=== PATIENT | female | born 1975 | race African-American/Black ===

== ENCOUNTER 2017-06-30 13:11 | Emergency (ER) | payer MEDICAID ==
[~2017-06-30] VITALS: Ht 165.1 cm; Wt 133.0 kg
[~2017-06-30 13:11] MED LIST: ALBU18HF2 IH; ASPI-1160 PO; BECL8.7A6 INH; FURO40TA5 PO; HYDR25TA PO; NASA IH; TIOT18CA3 INH
[2017-06-30 22:15] LABS: BASOPHILS % 0.2 % (0.0-2.0); EOSINOPHILS % 1.7 % (0.0-5.0); HEMATOCRIT. 42.3 % (36.0-48.0); HEMOGLOBIN. 13.7 g/dL (12.0-16.0); LYMPHOCYTES % 13.2 % (20.0-50.0); MEAN CORPUSCULAR VOLUME 86.2 fL (81.0-99.0); MEAN PLATELET VOLUME 8.4 fl (7.4-10.4); MONOCYTES % 12.4 % (2.0-8.0); NEUTROPHILS % 72.5 % (40.0-76.0); PLATELET 258 x1000/uL (130-400); RED BLOOD CELL COUNT 4.91 mill/uL (4.2-5.4); RED CELL DISTRIBUTION WIDTH 13.4 % (11.6-14.6)
[2017-06-30 22:19] LABS: INR 1.1; PROTHROMBIN TIME 11.1 sec (9.4-11.6)
[2017-06-30 22:21] LABS: CHLORIDE 99 mEq/L (98-107)
[2017-06-30 22:24] LABS: HCG SCREEN NEGATIVE
[2017-06-30] MEDS ORDERED: ONDANSETRON 4MG ODT PO ONE (22:45)
[2017-06-30] MEDS ORDERED: ACETAMINOPHEN 500MG TABLET PO ONE (22:45)
[2017-07-01 00:55] LABS: CLARITY URINE CLOUDY (CLEAR); COLOR URINE ORANGE (YELLOW); KETONES URINE NEGATIVE (NEGATIVE); LEUKOCYTE ESTERASE URINE 1+ (NEGATIVE); NITRITE URINE NEGATIVE (NEGATIVE); OCCULT BLOOD URINE 3+ (NEGATIVE); PROTEIN URINE 2+ (NEGATIVE); SPECIFIC GRAVITY URINE 1.023 (1.005-1.030); UROBILINOGEN URINE 0.2 E.U./dL (0.2-1.0)
[2017-07-01 02:25] VITALS: BP 109/70
== END 2017-07-01 02:10 | disposition home or self-care (01) ==
LOC: ER 16:19
DX: N39.0 Urinary tract infection, site not specified (principal); J44.9 Chronic obstructive pulmonary disease, unspecified; I11.0 Hypertensive heart disease with heart failure; I50.9 Heart failure, unspecified; Z79.82 Long term (current) use of aspirin
CPT/HCPCS: 36415; 80053; 81003; 83690; 84703; 85025; 85610; 99284; Q0162; Z7610

== ENCOUNTER 2019-01-29 11:37 | Inpatient (IN) | payer MEDICARE, MEDICAID ==
[~2019-01-29] VITALS: Ht 165.1 cm; Wt 153.8 kg
[2019-01-29] MEDS ORDERED: ALBUTEROL (0.083%) 2.5MG/3ML NEB HHN STA (12:02)
[2019-01-29 13:36] LABS: BASOPHILS % 0.5 % (0.0-2.0); EOSINOPHILS % 2.9 % (0.0-5.0); HEMATOCRIT. 40.7 % (36.0-48.0); HEMOGLOBIN. 12.9 g/dL (12.0-16.0); LYMPHOCYTES % 22.6 % (20.0-50.0); MEAN CORPUSCULAR HEMOGLOBIN 27.6 pg (28.0-32.0); MEAN CORPUSCULAR VOLUME 87.1 fL (81.0-99.0); MEAN PLATELET VOLUME 8.9 fl (7.4-10.4); MONOCYTES % 8.4 % (2.0-8.0); NEUTROPHILS % 65.6 % (40.0-76.0); PLATELET 157 x1000/uL (130-400); RED BLOOD CELL COUNT 4.68 mill/uL (4.2-5.4); RED CELL DISTRIBUTION WIDTH 14.7 % (11.6-14.6)
[2019-01-29 13:42] LABS: CHLORIDE 109 mEq/L (98-107)
[2019-01-29] MEDS ORDERED: ASPIRIN 81MG TABLET PO ONE (14:00)
[2019-01-29] MEDS ORDERED: FUROSEMIDE 40MG/4ML VIAL IV ONE (14:00)
[2019-01-29] MEDS ORDERED: METHYLPREDNISOLONE SOD SUCC 125 MG/2 ML VIAL IV ONE (14:30)
[2019-01-29] MEDS ORDERED: IPRATROPIUM/ALBUTEROL 0.5-3(2.5)MG/3ML NEB HHN PRN (16:30)
[2019-01-29 17:08] VITALS: BP 129/78
[2019-01-29 17:13] VITALS: BP 129/78
[2019-01-29] MEDS ORDERED: ATOR20TA65 PO (17:31)
[2019-01-29] MEDS ORDERED: AMLO5TAB88 PO (17:31)
[2019-01-29] MEDS ORDERED: SPIR50TA5 PO (17:31)
[2019-01-29] MEDS ORDERED: ALLO100T PO (17:31)
[2019-01-29] MEDS ORDERED: POTA-79 PO (17:31)
[2019-01-29] MEDS ORDERED: INFLUENZA VIRUS VACCINE(AFLURIA) 0.5ML SYR IM ONE (18:45)
[2019-01-29 20:00] VITALS: BP 134/74
[2019-01-29] MEDS: ACETAMINOPHEN 325MG TABLET PO PRN (20:09)
[2019-01-29] MEDS: BUDESONIDE 0.5MG/2ML NEB HHN SCH (21:13)
[2019-01-30] VITALS: BP 130/76
[2019-01-30] MEDS: IPRATROPIUM/ALBUTEROL 0.5-3(2.5)MG/3ML NEB HHN SCH ×6 (01:02→21:26)
[2019-01-30 04:00] VITALS: BP 134/83
[2019-01-30 08:00] VITALS: BP 128/68
[2019-01-30] MEDS: BUDESONIDE 0.5MG/2ML NEB HHN SCH ×2 (08:54→21:26)
[2019-01-30] MEDS: METHYLPREDNISOLONE SOD SUCC 40 MG/ML VIAL IV SCH (09:06)
[2019-01-30] MEDS: ACETAMINOPHEN 325MG TABLET PO PRN (10:22)
[2019-01-30 12:00] VITALS: BP 124/74
[2019-01-30 16:00] VITALS: BP 118/75
[2019-01-30 16:00] LABS: HEMATOCRIT. 43.5 % (36.0-48.0); HEMOGLOBIN. 13.8 g/dL (12.0-16.0); MEAN CORPUSCULAR HEMOGLOBIN 27.5 pg (28.0-32.0); MEAN CORPUSCULAR VOLUME 86.7 fL (81.0-99.0); MEAN PLATELET VOLUME 8.9 fl (7.4-10.4); PLATELET 203 x1000/uL (130-400); RED BLOOD CELL COUNT 5.01 mill/uL (4.2-5.4); RED CELL DISTRIBUTION WIDTH 14.8 % (11.6-14.6)
[2019-01-30 16:03] LABS: CHLORIDE 104 mEq/L (98-107)
[2019-01-30 16:09] LABS: PHOSPHORUS 2.9 mg/dL (2.5-4.9)
[2019-01-30] MEDS: FUROSEMIDE 40MG TABLET PO SCH (16:50)
[2019-01-30] MEDS: DILTIAZEM HCL 30MG TABLET PO SCH (16:51)
[2019-01-30] MEDS: SPIRONOLACTONE 50MG TABLET PO SCH (16:51)
[2019-01-30 17:06] LABS: PLATELET ESTIMATE NORMAL
[2019-01-30 20:15] VITALS: BP 139/79
[2019-01-30] MEDS: LORATADINE 10MG TABLET PO SCH (20:33)
[2019-01-30] MEDS: FLUTICASONE PROPIONATE 50MCG/SPRAY BOTTLE BOTHNSTRLS SCH (20:33)
[2019-01-30] MEDS: CEPHALEXIN 250MG CAPSULE PO SCH (20:33)
[2019-01-31] VITALS: BP 120/72
[2019-01-31] MEDS: CEPHALEXIN 250MG CAPSULE PO SCH ×4 (00:21→21:57)
[2019-01-31] MEDS: DILTIAZEM HCL 30MG TABLET PO SCH ×4 (00:21→17:55)
[2019-01-31] MEDS: IPRATROPIUM/ALBUTEROL 0.5-3(2.5)MG/3ML NEB HHN SCH ×6 (00:24→21:01)
[2019-01-31] MEDS: ACETYLCYSTEINE 100MG/ML 10% VIAL 4ML INH SCH ×3 (00:24→15:10)
[2019-01-31 04:00] VITALS: BP 123/53
[2019-01-31 08:00] VITALS: BP 121/74
[2019-01-31] MEDS: BUDESONIDE 0.5MG/2ML NEB HHN SCH ×2 (08:13→21:00)
[2019-01-31] MEDS ORDERED: MEDICATION NOT ON FORMULARY EA (Potassium Chloride 20 MEQ) PO SCH (09:00)
[2019-01-31] MEDS ORDERED: AMLODIPINE 5MG TABLET PO SCH (09:00)
[2019-01-31] MEDS: ASPIRIN 81MG TABLET PO SCH (09:35)
[2019-01-31] MEDS: LORATADINE 10MG TABLET PO SCH (09:35)
[2019-01-31] MEDS: POTASSIUM CHLORIDE 20MEQ TABLET SR PO SCH (09:35)
[2019-01-31] MEDS: METHYLPREDNISOLONE SOD SUCC 40 MG/ML VIAL IV SCH (09:36)
[2019-01-31] MEDS: FUROSEMIDE 40MG TABLET PO SCH ×2 (09:36→17:58)
[2019-01-31] MEDS ORDERED: POTASSIUM CHLORIDE 20MEQ TABLET SR PO NR (11:34)
[2019-01-31 12:00] VITALS: BP 130/68
[2019-01-31] MEDS: SPIRONOLACTONE 50MG TABLET PO SCH ×2 (12:17→17:58)
[2019-01-31] MEDS: ALLOPURINOL 100 MG TABLET PO SCH (12:18)
[2019-01-31] MEDS: ATORVASTATIN CALCIUM 20MG TABLET PO SCH (12:18)
[2019-01-31] MEDS: FLUTICASONE PROPIONATE 50MCG/SPRAY BOTTLE BOTHNSTRLS SCH ×2 (12:18→21:48)
[2019-01-31 16:00] VITALS: BP 104/55
[2019-01-31] MEDS ORDERED: CEPHALEXIN 250MG CAPSULE PO SCH ×2 (16:00→23:00)
[2019-01-31 20:00] VITALS: BP 135/78
[2019-02-01] VITALS: BP 138/78
[2019-02-01] MEDS: ACETYLCYSTEINE 100MG/ML 10% VIAL 4ML INH SCH ×2 (00:39→09:53)
[2019-02-01] MEDS: DILTIAZEM HCL 30MG TABLET PO SCH ×2 (00:41→05:02)
[2019-02-01] MEDS: ACETAMINOPHEN 325MG TABLET PO PRN (00:41)
[2019-02-01] MEDS: IPRATROPIUM/ALBUTEROL 0.5-3(2.5)MG/3ML NEB HHN SCH ×4 (00:41→13:54)
[2019-02-01 04:00] VITALS: BP 150/87
[2019-02-01] MEDS: CEPHALEXIN 250MG CAPSULE PO SCH ×2 (04:48→09:24)
[2019-02-01 07:53] LABS: CHLORIDE 103 mEq/L (98-107)
[2019-02-01 08:00] VITALS: BP 129/80
[2019-02-01] MEDS: FUROSEMIDE 40MG TABLET PO SCH (09:24)
[2019-02-01] MEDS: ALLOPURINOL 100 MG TABLET PO SCH (09:24)
[2019-02-01] MEDS: METHYLPREDNISOLONE SOD SUCC 40 MG/ML VIAL IV SCH (09:24)
[2019-02-01] MEDS: ATORVASTATIN CALCIUM 20MG TABLET PO SCH (09:24)
[2019-02-01] MEDS: POTASSIUM CHLORIDE 20MEQ TABLET SR PO SCH (09:24)
[2019-02-01] MEDS: LORATADINE 10MG TABLET PO SCH (09:24)
[2019-02-01] MEDS: ASPIRIN 81MG TABLET PO SCH (09:25)
[2019-02-01] MEDS: FLUTICASONE PROPIONATE 50MCG/SPRAY BOTTLE BOTHNSTRLS SCH (09:29)
[2019-02-01] MEDS: SPIRONOLACTONE 50MG TABLET PO SCH (09:29)
[2019-02-01] MEDS: BUDESONIDE 0.5MG/2ML NEB HHN SCH (09:53)
[2019-02-01] MEDS ORDERED: CEPH-569 MT (10:29)
[2019-02-01 12:00] VITALS: BP 122/70
== END 2019-02-01 16:54 | disposition home or self-care (01) | DRG 291 ==
LOC: ER 11:37 → 6WST 14:23 → EDBEDREQTM 14:29 → EDBEDREQ 14:29 → ENRESERV 15:26
PROVIDERS: ADMIT Family Medicine; ATTEND Family Medicine
PROC: 5A09357 Assistance with Respiratory Ventilation, Less than 24 Consecutive Hours, Continuous Positive Airway Pressure (ICD-10-PCS; principal; 2019-01-30)
PROC: 5A09357 Assistance with Respiratory Ventilation, Less than 24 Consecutive Hours, Continuous Positive Airway Pressure (ICD-10-PCS; 2019-01-31)
PROC: 5A09357 Assistance with Respiratory Ventilation, Less than 24 Consecutive Hours, Continuous Positive Airway Pressure (ICD-10-PCS; 2019-02-01)
DX: I11.0 Hypertensive heart disease with heart failure (principal); J96.20 Acute and chronic respiratory failure, unspecified whether with hypoxia or hypercapnia; J44.1 Chronic obstructive pulmonary disease with (acute) exacerbation; E44.1 Mild protein-calorie malnutrition; E66.2 Morbid (severe) obesity with alveolar hypoventilation; Z68.43 Body mass index [BMI] 50.0-59.9, adult; I50.43 Acute on chronic combined systolic (congestive) and diastolic (congestive) heart failure; I42.9 Cardiomyopathy, unspecified; I27.29 Other secondary pulmonary hypertension; J00 Acute nasopharyngitis [common cold]; Z99.81 Dependence on supplemental oxygen; Z83.3 Family history of diabetes mellitus; Z79.82 Long term (current) use of aspirin; Z79.899 Other long term (current) drug therapy
CPT/HCPCS: 36415; 71045; 80048; 83735; 83880; 84100; 84484; 90686; 93005; 93306; 94640; 94660; 96374; 99285; J1940; J2920; J2930; J7608; J7611; J7620; J7626

== ENCOUNTER 2022-04-12 05:40 | Inpatient (IN) | payer MEDICARE, MEDICAID ==
[~2022-04-12] VITALS: Ht 165.1 cm; Wt 169.6 kg
[~2022-04-12 05:40] MED LIST changes: -ALBU18HF2 IH; +ALLO100T PO; +AMLO5TAB88 PO; +ATOR20TA65 PO; -BECL8.7A6 INH; +CEPH-569 MT; -HYDR25TA PO; -NASA IH; +POTA-79 PO; +SPIR50TA5 PO; -TIOT18CA3 INH
[2022-04-12] MEDS ORDERED: ALBUTEROL (0.083%) 2.5MG/3ML NEB HHN STA (05:59)
[2022-04-12] MEDS ORDERED: MAGNESIUM 2 G PREMIX 50 ML IV STA (05:59)
[2022-04-12] MEDS ORDERED: METHYLPREDNISOLONE SOD SUCC 125 MG/2 ML VIAL IV STA (05:59)
[2022-04-12] MEDS ORDERED: IPRATROPIUM BROMIDE (0.02%) 0.5MG/2.5ML NEB HHN STA (05:59)
[2022-04-12 06:40] LABS: CHLORIDE 97 mEq/L (98-107)
[2022-04-12 06:54] LABS: BASOPHILS % 0.7 % (0.0-2.0); EOSINOPHILS % 0.5 % (0.0-5.0); HEMOGLOBIN. 16.6 g/dL (12.0-16.0); LYMPHOCYTES % 36.1 % (20.0-50.0); MEAN CORPUSCULAR HEMOGLOBIN 27.2 pg (28.0-32.0); MEAN CORPUSCULAR VOLUME 85.3 fL (81.0-99.0); MEAN PLATELET VOLUME 8.6 fl (7.4-10.4); MONOCYTES % 13.1 % (2.0-8.0); NEUTROPHILS % 49.6 % (40.0-76.0); PLATELET 197 x1000/uL (130-400); RED CELL DISTRIBUTION WIDTH 16.4 % (11.6-14.6)
[2022-04-12] MEDS ORDERED: FUROSEMIDE 40MG/4ML VIAL IVP ONE (07:45)
[2022-04-12] MEDS ORDERED: ENALAPRIL 2.5MG/2ML VIAL 2ML IV ONE (07:45)
[2022-04-12 07:57] LABS: HCG SCREEN NEGATIVE
[2022-04-12] MEDS ORDERED: ENALAPRIL 1.25MG/ML VIAL 1ML IV NR (08:00)
[2022-04-12] MEDS ORDERED: IOHEXOL-350 100 ML BOTTLE ONE (09:36)
[2022-04-12] MEDS ORDERED: ACETAMINOPHEN WITH CODEINE 300/30MG TABLET PO ONE (10:00)
[2022-04-12] MEDS ORDERED: IPRATROPIUM/ALBUTEROL 0.5-3(2.5)MG/3ML NEB HHN PRN (11:45)
[2022-04-12] MEDS ORDERED: CLONIDINE 0.1MG TABLET PO PRN (11:45)
[2022-04-12] MEDS ORDERED: DIPHENHYDRAMINE 50MG/ML VIAL IV PRN (11:45)
[2022-04-12] MEDS ORDERED: ONDANSETRON HCL 4MG/2ML INJ IV PRN (11:45)
[2022-04-12 13:12] VITALS: BP 137/84
[2022-04-12] MEDS: METHYLPREDNISOLONE SOD SUCC 125 MG/2 ML VIAL IV SCH ×2 (14:06→17:54)
[2022-04-12] MEDS: ACETAMINOPHEN 325MG TABLET PO PRN ×2 (14:06→21:42)
[2022-04-12] MEDS ORDERED: *PATIENT'S OWN MEDICATION STORAGE XX SCH (14:15)
[2022-04-12 15:42] VITALS: BP 98/68
[2022-04-12 20:00] VITALS: BP 152/122
[2022-04-12] MEDS: METHYLPREDNISOLONE SOD SUCC 40 MG/ML VIAL IV SCH (21:33)
[2022-04-13] VITALS: BP 125/78
[2022-04-13 04:00] VITALS: BP 118/70
[2022-04-13] MEDS: ACETAMINOPHEN 325MG TABLET PO PRN ×3 (05:06→18:55)
[2022-04-13] MEDS: METHYLPREDNISOLONE SOD SUCC 40 MG/ML VIAL IV SCH ×3 (05:07→21:35)
[2022-04-13 07:47] LABS: BASOPHILS % 0.1 % (0.0-2.0); HEMATOCRIT. 51.8 % (36.0-48.0); HEMOGLOBIN. 16.5 g/dL (12.0-16.0); LYMPHOCYTES % 25.2 % (20.0-50.0); MEAN CORPUSCULAR HEMOGLOBIN 27.7 pg (28.0-32.0); MEAN CORPUSCULAR VOLUME 86.8 fL (81.0-99.0); MEAN PLATELET VOLUME 8.5 fl (7.4-10.4); MONOCYTES % 7.3 % (2.0-8.0); NEUTROPHILS % 67.4 % (40.0-76.0); PLATELET 189 x1000/uL (130-400); RED BLOOD CELL COUNT 5.97 mill/uL (4.2-5.4); RED CELL DISTRIBUTION WIDTH 16.2 % (11.6-14.6)
[2022-04-13 07:48] LABS: CHLORIDE 96 mEq/L (98-107)
[2022-04-13 08:23] VITALS: BP 106/77
[2022-04-13] MEDS ORDERED: FUROSEMIDE 40MG/4ML VIAL IVP SCH (09:00)
[2022-04-13 11:32] VITALS: BP 113/58
[2022-04-13 12:35] LABS: BG BASE EXCESS -1.3 mmol/L (-2.0-2.0); BG CARBOXYHEMOGLOBIN 1.2 % (0.5-1.5); BG DEOXYHEMOGLOBIN 14.5 % (0.0-5.0); BG FRACTION INSPIRED OXYGEN 32; BG METHEMOGLOBIN 0.3 % (0.0-1.5); BG OXYGEN SATURATION 85.3 % (92.0-98.5); BG PCO2 41.9 mmHg (35.0-45.0); BG PH 7.375 (7.350-7.450); BG PO2 52.4 mmHg (75.0-100.0); BG SAMPLE SITE RIGHT RADIAL; BG TOTAL HEMOGLOBIN 18.2 g/dL (12.0-18.0); BG VENT MODE NASAL CANNULA
[2022-04-13] MEDS: DILTIAZEM HCL 30MG TABLET PO SCH ×2 (14:00→21:35)
[2022-04-13 16:06] VITALS: BP 119/77
[2022-04-13 20:00] VITALS: BP 107/74
[2022-04-13] MEDS: SILDENAFIL CITRATE 20MG TABLET PO SCH (21:34)
[2022-04-14] VITALS: BP 104/57
[2022-04-14] MEDS: ACETAMINOPHEN 325MG TABLET PO PRN ×3 (01:33→14:51)
[2022-04-14 04:00] VITALS: BP 110/78
[2022-04-14] MEDS: SILDENAFIL CITRATE 20MG TABLET PO SCH ×3 (05:48→21:47)
[2022-04-14] MEDS: METHYLPREDNISOLONE SOD SUCC 40 MG/ML VIAL IV SCH ×3 (05:48→22:19)
[2022-04-14] MEDS: DILTIAZEM HCL 30MG TABLET PO SCH ×3 (05:48→21:46)
[2022-04-14 06:39] LABS: BASOPHILS % 0.3 % (0.0-2.0); EOSINOPHILS % 0.4 % (0.0-5.0); HEMATOCRIT. 51.9 % (36.0-48.0); HEMOGLOBIN. 16.5 g/dL (12.0-16.0); LYMPHOCYTES % 22.1 % (20.0-50.0); MEAN CORPUSCULAR HEMOGLOBIN 27.5 pg (28.0-32.0); MEAN CORPUSCULAR VOLUME 86.6 fL (81.0-99.0); MEAN PLATELET VOLUME 8.7 fl (7.4-10.4); MONOCYTES % 12.5 % (2.0-8.0); NEUTROPHILS % 64.7 % (40.0-76.0); PLATELET 175 x1000/uL (130-400); RED BLOOD CELL COUNT 5.99 mill/uL (4.2-5.4)
[2022-04-14 08:00] VITALS: BP 105/55
[2022-04-14] MEDS ORDERED: SODIUM POLYSTYRENE SULFONATE 15 G/60 ML BOT PO SCH (09:00)
[2022-04-14 12:00] VITALS: BP 100/50
[2022-04-14] MEDS ORDERED: HYDROCODONE/ACETAMINOPHEN 5/325MG TABLET PO PRN (14:15)
[2022-04-14] MEDS ORDERED: SODIUM CHLORIDE 45ML SPRAY NS PRN (15:00)
[2022-04-14 16:00] VITALS: BP 104/63
[2022-04-14] MEDS ORDERED: NALOXONE HCL 0.4MG/ML VIAL IV PRN (17:15)
[2022-04-14 20:00] VITALS: BP 98/52
[2022-04-15] VITALS (7 sets, daily range): BP systolic 90–132; BP diastolic 51–80
[2022-04-15] MEDS: ACETAMINOPHEN 325MG TABLET PO PRN (04:25)
[2022-04-15] MEDS: DILTIAZEM HCL 30MG TABLET PO SCH ×3 (06:00→21:40)
[2022-04-15] MEDS: SILDENAFIL CITRATE 20MG TABLET PO SCH ×3 (06:00→21:40)
[2022-04-15] MEDS: METHYLPREDNISOLONE SOD SUCC 40 MG/ML VIAL IV SCH ×3 (06:14→21:38)
[2022-04-15 10:02] LABS: BASOPHILS % 0.1 % (0.0-2.0); HEMATOCRIT. 56.2 % (36.0-48.0); HEMOGLOBIN. 17.4 g/dL (12.0-16.0); LYMPHOCYTES % 17.3 % (20.0-50.0); MEAN CORPUSCULAR HEMOGLOBIN 27.8 pg (28.0-32.0); MEAN CORPUSCULAR VOLUME 89.9 fL (81.0-99.0); MEAN PLATELET VOLUME 8.8 fl (7.4-10.4); NEUTROPHILS % 75.6 % (40.0-76.0); PLATELET 142 x1000/uL (130-400); RED BLOOD CELL COUNT 6.25 mill/uL (4.2-5.4); RED CELL DISTRIBUTION WIDTH 16.7 % (11.6-14.6)
[2022-04-15 10:34] LABS: PHOSPHORUS 9.1 mg/dL (2.5-4.9)
[2022-04-15 13:15] LABS: INR 1.4; PARTIAL THROMBOPLASTIN TIME 28.6 sec (23.4-31.0); PROTHROMBIN TIME 14.8 sec (9.6-11.0)
[2022-04-15 13:40] LABS: HEPATITIS B SURFACE ANTIGEN NEGATIVE
[2022-04-15] MEDS ORDERED: SODIUM POLYSTYRENE SULFONATE 15 G/60 ML BOT PO NR (15:00)
[2022-04-15 20:31] LABS: UCG SCREEN NEGATIVE
[2022-04-16] VITALS: BP 120/60
[2022-04-16 04:30] VITALS: BP 99/52
[2022-04-16] MEDS: DILTIAZEM HCL 30MG TABLET PO SCH (05:23)
[2022-04-16] MEDS: METHYLPREDNISOLONE SOD SUCC 40 MG/ML VIAL IV SCH (05:39)
[2022-04-16] MEDS: SILDENAFIL CITRATE 20MG TABLET PO SCH (05:39)
[2022-04-16 06:24] LABS: BASOPHILS % 0.1 % (0.0-2.0); EOSINOPHILS % 0.1 % (0.0-5.0); HEMATOCRIT. 55.2 % (36.0-48.0); HEMOGLOBIN. 17.3 g/dL (12.0-16.0); LYMPHOCYTES % 10.2 % (20.0-50.0); MEAN CORPUSCULAR HEMOGLOBIN 27.6 pg (28.0-32.0); MEAN CORPUSCULAR VOLUME 87.8 fL (81.0-99.0); MEAN PLATELET VOLUME 9.4 fl (7.4-10.4); MONOCYTES % 10.5 % (2.0-8.0); NEUTROPHILS % 79.1 % (40.0-76.0); PLATELET 116 x1000/uL (130-400); RED BLOOD CELL COUNT 6.28 mill/uL (4.2-5.4); RED CELL DISTRIBUTION WIDTH 16.7 % (11.6-14.6)
[2022-04-16] MEDS ORDERED: LIDOCAINE HCL/PF 1% 10 MG/ML 5ML VIAL ONE (07:57)
[2022-04-16 10:28] LABS: PHOSPHORUS 5.2 mg/dL (2.5-4.9)
== END 2022-04-16 09:42 | DRG 291 ==
LOC: ER 05:40 → EDBEDREQ 10:31 → 8WST 11:18 → EDBEDREQTM 11:22 → EDBEDREQ 11:22
PROVIDERS: ADMIT Internal Medicine; ATTEND Internal Medicine
PROC: 5A09357 Assistance with Respiratory Ventilation, Less than 24 Consecutive Hours, Continuous Positive Airway Pressure (ICD-10-PCS; 2022-04-13)
PROC: 5A12012 Performance of Cardiac Output, Single, Manual (ICD-10-PCS; principal; 2022-04-16)
PROC: 0BH17EZ Insertion of Endotracheal Airway into Trachea, Via Natural or Artificial Opening (ICD-10-PCS; 2022-04-16)
PROC: 02HV33Z Insertion of Infusion Device into Superior Vena Cava, Percutaneous Approach (ICD-10-PCS; 2022-04-16)
PROC: B548ZZA Ultrasonography of Superior Vena Cava, Guidance (ICD-10-PCS; 2022-04-16)
DX: I13.0 Hypertensive heart and chronic kidney disease with heart failure and stage 1 through stage 4 chronic kidney disease, or unspecified chronic kidney disease (principal); J96.01 Acute respiratory failure with hypoxia; I50.43 Acute on chronic combined systolic (congestive) and diastolic (congestive) heart failure; J44.1 Chronic obstructive pulmonary disease with (acute) exacerbation; I31.39 Other pericardial effusion (noninflammatory); N17.9 Acute kidney failure, unspecified; E44.1 Mild protein-calorie malnutrition; Z68.44 Body mass index [BMI] 60.0-69.9, adult; J91.8 Pleural effusion in other conditions classified elsewhere; Z20.822 Contact with and (suspected) exposure to COVID-19; I27.29 Other secondary pulmonary hypertension; K59.00 Constipation, unspecified; N18.9 Chronic kidney disease, unspecified; E66.01 Morbid (severe) obesity due to excess calories; E78.5 Hyperlipidemia, unspecified; G47.33 Obstructive sleep apnea (adult) (pediatric); I07.1 Rheumatic tricuspid insufficiency; R74.01 Elevation of levels of liver transaminase levels; Z79.899 Other long term (current) drug therapy; Z91.14 Patient's other noncompliance with medication regimen; Z99.81 Dependence on supplemental oxygen; Z79.82 Long term (current) use of aspirin; Z82.49 Family history of ischemic heart disease and other diseases of the circulatory system
CPT/HCPCS: 31500; 36415; 36556; 36600; 71045; 71275; 76770; 76937; 80048; 80053; 81025; 82375; 82533; 82550; 82805; 82962; 83735; 83880; 84100; 84145; 84443; 84484; 84703; 85025; 85379; 86705; 86709; 86803; 87340; 87420; 87426; 87804; 93005; 93306; 93970; 94640; 94644; 94660; 99291; A6261; C1752; C9803; J1940; J2405; J2920; J2930; J3475; J3490; Q9967